=== PATIENT | male | born 1980 | race Caucasian/White ===

== ENCOUNTER 2017-10-15 15:20 | Emergency (ER) | payer OTHER ==
[~2017-10-15] VITALS: Ht 177.8 cm; Wt 80.7 kg
[2017-10-15] MEDS ORDERED: BENADRYL25 MG PO (15:39)
[2017-10-15] MEDS ORDERED: PROTONIX40 MG PO (16:54)
[2017-10-15] MEDS ORDERED: ONDANSETRON ODT8 MG PO (16:54)
== END 2017-10-15 17:12 | disposition home or self-care (01) ==
LOC: ED 15:20
DX: R10.11 Right upper quadrant pain (principal); R10.813 Right lower quadrant abdominal tenderness; Z79.899 Other long term (current) drug therapy
CPT/HCPCS: 74177; 80053; 81001; 82150; 85025; 96374; 96375; 99284; J1885; J2405; J7030; Q9967

== ENCOUNTER 2018-04-12 16:02 | Emergency (ER) | payer SELFPAY ==
[~2018-04-12] VITALS: Ht 177.8 cm; Wt 80.7 kg
[~2018-04-12 16:02] MED LIST: BENADRYL25 MG PO; ONDANSETRON ODT8 MG PO; PROTONIX40 MG PO
[2018-04-12] MEDS ORDERED: TOPIRAMATE25 MG PO (16:17)
[2018-04-12] MEDS ORDERED: BUSPIRONE HCL10 MG PO (16:17)
[2018-04-12] MEDS ORDERED: PREDNISONE20 MG PO (17:36)
== END 2018-04-12 17:45 | disposition home or self-care (01) ==
LOC: ED 16:02
DX: T78.40XA Allergy, unspecified, initial encounter (principal); F17.200 Nicotine dependence, unspecified, uncomplicated; Z79.899 Other long term (current) drug therapy
CPT/HCPCS: 99282; J7512; Q0163

== ENCOUNTER 2019-04-06 07:40 | Emergency (ER) | payer MEDICAID ==
[~2019-04-06] VITALS: Ht 180.3 cm; Wt 80.7 kg
[~2019-04-06 07:40] MED LIST changes: +BUSPIRONE HCL10 MG PO; +KEFLEX500 MG PO; +PREDNISONE20 MG PO; +TOPIRAMATE25 MG PO
[2019-04-06] MEDS ORDERED: ASPIRIN325 MG PO (07:53)
== END 2019-04-06 08:24 | disposition home or self-care (01) ==
LOC: ED 07:40
DX: S50.11XA Contusion of right forearm, initial encounter (principal); Y08.02XA Assault by strike by baseball bat, initial encounter; F17.200 Nicotine dependence, unspecified, uncomplicated; Z79.82 Long term (current) use of aspirin
CPT/HCPCS: 73090; 99283

== ENCOUNTER 2024-06-27 19:57 | Emergency (ER) | payer OTHER ==
[~2024-06-27] VITALS: Ht 180.3 cm; Wt 91.2 kg
[~2024-06-27 19:57] MED LIST changes: +ASPIRIN325 MG PO; +CYCLOBENZAPRINE10 MG PO; +LIDODERM1 EACH TOP; +METHYLPREDNISOLO4 M1 PO
[2024-06-27 20:45] LABS: BASOPHILS 0.3 % (0-2); EOSINOPHILS 1.8 % (0-6); HEMATOCRIT 50.1 % (35.0-50.0); HEMOGLOBIN 17.4 g/dL (12.0-18.0); LYMPHOCYTES 14.7 % (24-44); MCH 30.3 (27-36); MCHC 34.7 g/dl (30-36); MCV 87.5 fl (81-99); MONOCYTES 8.4 % (0-12); NEUTROPHILS 74.8 % (39-80); PLATELET COUNT 233 K/uL (140-440); RBC 5.73 M/ul (4.3-5.7); RDW 13.2 (10.5-15.0)
[2024-06-27 20:57] LABS: ALBUMIN 4.1 g/dL (3.4-5.0); ALBUMIN/GLOBULIN RATIO 1.21 (1.1-2.4); ANION GAP 14.8 (7-21); BILIRUBIN, TOTAL 1.1 ng/dL (0.2-1.0); BUN/CREATININE RATIO 11.2 (6.0-28.6); CALCIUM 9.3 mg/dL (8.5-10.1); CREATININE, SERUM 1.25 mg/dL (0.70-1.30); POTASSIUM 3.8 mmol/L (3.5-5.1); PROTEIN, TOTAL 7.5 g/dL (6.4-8.2)
[2024-06-27] MEDS ORDERED: FAMOTIDINE 20 MG/ 2 ML VIAL IV ONE (21:00)
[2024-06-27] MEDS ORDERED: LACTATED RINGER'S 1,000 ML IV ONE (21:00)
[2024-06-27] MEDS ORDERED: KETOROLAC TROMETHAMINE 30 MG/ML VIAL IV ONE (21:00)
[2024-06-27] MEDS ORDERED: ONDANSETRON 4 MG HOME.PACK SL ONE (22:30)
[2024-06-27 22:34] VITALS: BP 160/120
== END 2024-06-27 22:34 | disposition home or self-care (01) ==
LOC: ED 19:57
PROVIDERS: Internal Medicine
DX: A05.9 Bacterial foodborne intoxication, unspecified (principal); F17.200 Nicotine dependence, unspecified, uncomplicated; Z88.8 Allergy status to other drugs, medicaments and biological substances
CPT/HCPCS: 36415; 80053; 85025; 87045; 87046; 96361; 96374; 96375; 99284-25; A9270; J1885; J7121